=== PATIENT | female | born 1970 | race Caucasian/White ===

== ENCOUNTER 2018-04-23 07:56 | Emergency (ER) | payer SELFPAY ==
[~2018-04-23] VITALS: Ht 157.5 cm; Wt 63.6 kg
[2018-04-23 08:12] VITALS: Ht 157.5 cm; Wt 63.6 kg
[2018-04-23] MEDS ORDERED: DEXILANT60 MG PO ×2 (08:13→08:41)
[2018-04-23] MEDS ORDERED: PRISTIQ100 MG PO ×2 (08:14→08:41)
[2018-04-23 08:56] VITALS: BP 126/88
== END 2018-04-23 08:56 | disposition home or self-care (01) ==
LOC: D.ER 07:56
DX: F32.9 Major depressive disorder, single episode, unspecified (principal); K21.9 Gastro-esophageal reflux disease without esophagitis; F90.9 Attention-deficit hyperactivity disorder, unspecified type; F17.200 Nicotine dependence, unspecified, uncomplicated

== ENCOUNTER 2018-06-30 06:32 | Emergency (ER) | payer MEDICAID ==
[~2018-06-30] VITALS: Ht 157.5 cm; Wt 63.6 kg
[~2018-06-30 06:32] MED LIST: DEXILANT60 MG PO; PRISTIQ100 MG PO
[2018-06-30 06:46] VITALS: Ht 157.5 cm; Wt 63.6 kg
[2018-06-30] MEDS ORDERED: AUGMENTIN 875-11 TAB PO (08:33)
[2018-06-30] MEDS ORDERED: HYDROCODON-ACE1 EAC7 PO (08:34)
[2018-06-30] MEDS ORDERED: CLARITIN 10 MG10 MG PO (08:34)
[2018-06-30 08:53] VITALS: BP 140/93
[2018-07-24] MEDS ORDERED: BYSTOLIC5 MG PO (14:15)
[2018-07-29 06:47] VITALS: Ht 157.5 cm; Wt 63.6 kg
== END 2018-06-30 08:54 | disposition home or self-care (01) ==
LOC: D.ER 06:32
DX: J01.90 Acute sinusitis, unspecified (principal); M54.31 Sciatica, right side; K21.9 Gastro-esophageal reflux disease without esophagitis; F90.9 Attention-deficit hyperactivity disorder, unspecified type; F17.200 Nicotine dependence, unspecified, uncomplicated

== ENCOUNTER 2018-07-29 05:25 | Day surgery (SDC) | payer MEDICAID ==
[2018-07-24 14:49] LABS: HEMATOCRIT 39.9 % (36.0-48.0); HEMOGLOBIN 13.5 g/dL (12-16); MCHC 33.8 g/dL (31.0-37.0); MCV 97.6 fL (80.0-100.0); RBC 4.09 10x6/uL (4.00-5.40); WBC 9.5 10x3/uL (4.8-10.8)
[2018-07-27 07:29] LABS: BASOPHILS 0.4 % (0-2); EOSINOPHILS 1.7 % (0-7); HEMATOCRIT 42.2 % (36.0-48.0); HEMOGLOBIN 14.4 g/dL (12-16); IMMATURE GRANULOCYTES 0.2 % (0-5); LYMPHOCYTES 24.6 % (15-50); MCH 33.3 pg (26.0-34.0); MCHC 34.1 g/dL (31.0-37.0); MCV 97.7 fL (80.0-100.0); MEAN PLATELET VOLUME 9.2 fL (7.4-10.4); MONOCYTES 12.1 % (2-11); PLATELET COUNT 410 10x3/uL (130-400); RBC 4.32 10x6/uL (4.00-5.40); WBC 10.9 10x3/uL (4.8-10.8)
[2018-07-27 07:45] LABS: CALC OSMOLALITY 276 mosm/kg (275-300); CALCIUM 8.9 mg/dL (8.5-10.1); CARBON DIOXIDE 33.2 mmol/L (21.0-32.0); CHLORIDE - SERUM 101 mmol/L (98-107); CREATININE - SERUM 0.6 mg/dL (0.6-1.3); GLUCOSE 93 mg/dL (74-106); POTASSIUM - SERUM 3.9 mmol/L (3.5-5.1); SODIUM 140 mmol/L (136-145); UREA NITROGEN 7 mg/dL (7-18); eGFR NON AFRICAN AMERICAN > 90 mL/min (90-120)
[~2018-07-29] VITALS: Ht 157.5 cm; Wt 63.5 kg
[~2018-07-29 05:25] MED LIST changes: +AUGMENTIN 875-11 TAB PO; +BYSTOLIC5 MG PO; +CLARITIN 10 MG10 MG PO; +HYDROCODON-ACE1 EAC7 PO
[2018-07-29 06:47] VITALS: BP 105/68; Ht 157.5 cm; Wt 63.5 kg
== END 2018-07-29 12:55 | disposition home or self-care (01) ==
LOC: D.OPS 05:25 → D.PAN 07:30 → D.OPS 12:55
PROVIDERS: Anesthesiology; Orthopaedic Surgery
DX: G56.02 Carpal tunnel syndrome, left upper limb (principal); M65.312 Trigger thumb, left thumb; Z01.812 Encounter for preprocedural laboratory examination

== ENCOUNTER 2018-10-14 09:29 | Emergency (ER) | payer MEDICAID ==
[~2018-10-14] VITALS: Ht 157.5 cm; Wt 59.1 kg
[2018-10-14 09:45] VITALS: Ht 157.5 cm; Wt 59.1 kg
[2018-10-14] MEDS ORDERED: ADDERALL 7.5 M7.5 MG PO (09:47)
[2018-10-14] MEDS ORDERED: ADDERALL 5 MG TA5 M1 (09:47)
[2018-10-14] MEDS ORDERED: TALWIN NX1 TAB PO (11:04)
[2018-10-14] MEDS ORDERED: BACLOFEN20 M1 PO (11:04)
[2018-10-14] MEDS ORDERED: COMPAZINE5 MG PO (11:04)
[2018-10-14 11:49] VITALS: BP 123/78
[2018-10-15] MEDS ORDERED: CYCLOBENZAPRINE10 MG PO (08:30)
== END 2018-10-14 11:50 | disposition home or self-care (01) ==
LOC: D.ER 09:29
DX: M54.31 Sciatica, right side (principal); M54.5 Low back pain; F17.200 Nicotine dependence, unspecified, uncomplicated

== ENCOUNTER 2018-10-15 07:58 | Emergency (ER) | payer MEDICAID ==
[~2018-10-15] VITALS: Ht 157.5 cm; Wt 59.1 kg
[~2018-10-15 07:58] MED LIST changes: +ADDERALL 5 MG TA5 M1; +ADDERALL 7.5 M7.5 MG PO; +BACLOFEN20 M1 PO; +COMPAZINE5 MG PO; +TALWIN NX1 TAB PO
[2018-10-15 08:03] VITALS: Ht 157.5 cm; Wt 59.1 kg
[2018-10-15] MEDS ORDERED: CYCLOBENZAPRINE10 MG PO (08:30)
[2018-10-15 09:15] VITALS: BP 118/62
== END 2018-10-15 09:16 | disposition home or self-care (01) ==
LOC: D.ER 07:58
DX: M54.41 Lumbago with sciatica, right side (principal); G89.29 Other chronic pain; F17.200 Nicotine dependence, unspecified, uncomplicated

== ENCOUNTER 2019-03-13 07:28 | Emergency (ER) | payer MEDICAID ==
[~2019-03-13] VITALS: Ht 157.5 cm; Wt 59.1 kg
[~2019-03-13 07:28] MED LIST changes: +CYCLOBENZAPRINE10 MG PO
[2019-03-13 07:31] VITALS: Ht 157.5 cm; Wt 59.1 kg
[2019-03-13 08:25] LABS: BASOPHILS 0.4 % (0-2); HEMOGLOBIN 14.2 g/dL (12-16); IMMATURE GRANULOCYTES 0.3 % (0-5); LYMPHOCYTES 26.3 % (15-50); MCH 33.2 pg (26.0-34.0); MCHC 35.5 g/dL (31.0-37.0); MCV 93.5 fL (80.0-100.0); MEAN PLATELET VOLUME 9.3 fL (7.4-10.4); MONOCYTES 9.9 % (2-11); NEUTROPHILS 62.1 % (40-80); PLATELET COUNT 379 10x3/uL (130-400); RBC 4.28 10x6/uL (4.00-5.40); RDW 14.6 % (11.5-14.5); WBC 9.8 10x3/uL (4.8-10.8)
[2019-03-13 08:34] LABS: INR 0.87 (0.85-1.17); PROTIME 11.4 SECONDS (11.6-15.0)
[2019-03-13 08:35] LABS: APTT 34.2 SECONDS (22.8-39.4)
[2019-03-13 08:40] LABS: ALBUMIN 3.6 g/dL (3.4-5.0); ALKALINE PHOSPHATASE 80 U/L (46-116); ALT (SGPT) 22 U/L (10-68); BILIRUBIN - TOTAL 0.24 mg/dL (0.2-1.3); CALC OSMOLALITY 278 mosm/kg (275-300); CARBON DIOXIDE 26.7 mmol/L (21.0-32.0); CHLORIDE - SERUM 103 mmol/L (98-107); CREATININE - SERUM 0.6 mg/dL (0.6-1.3); GLUCOSE 81 mg/dL (74-106); POTASSIUM - SERUM 3.5 mmol/L (3.5-5.1); PROTEIN - SERUM 7.4 g/dL (6.4-8.2); SODIUM 141 mmol/L (136-145); UREA NITROGEN 11 mg/dL (7-18); eGFR NON AFRICAN AMERICAN > 90 mL/min (90-120)
[2019-03-13 08:54] LABS: CREATINE KINASE 95 UL (21-215); PRO BNP 37 pg/mL (0-125)
[2019-03-13 08:55] LABS: TROPONIN-I < 0.017 ng/mL (0.000-0.060)
[2019-03-13] MEDS ORDERED: LEVAQUIN750 MG PO (08:55)
[2019-03-13] MEDS ORDERED: HYDROCODON-ACE1 EAC2 PO (08:55)
[2019-03-13 11:20] VITALS: BP 115/74
== END 2019-03-13 11:22 | disposition home or self-care (01) ==
LOC: D.ER 07:28
PROVIDERS: Emergency Medicine
DX: J18.9 Pneumonia, unspecified organism (principal)

== ENCOUNTER 2019-03-23 12:06 | Inpatient (IN) | payer BC ==
[~2019-03-23] VITALS: Ht 157.5 cm; Wt 54.6 kg
--- NOTE | ~2019-03-23 | EC ---
PATIENT:JAME LUO DATE OF SERVICE: 03/23/19 SEX: F MEDICAL RECORD: [id number] DATE OF : [birth year] LOCATION:D. D.212 AGE OF PATIENT: 49 ADMISSION DATE: 03/23/19 REFERRING PHYSICIAN: INTERPRETING PHYSICIAN: CADY LOVING MD ECHOCARDIOGRAM REPORT ECHO CHARGES 4 ECHO COMPLETE Date: 03/24/19 CLINICAL DIAGNOSIS: ABNORMAL EKG, CHEST DISCOMFORT ECHOCARDIOGRAPHIC MEASUREMENTS (adult normal given) AC root (d.<3.7cm) 2.8 cm LV Septum d (<1.2 cm> 0.8 cm Valve Excursion 2.2 cm LV Septum (systole) 1.3 cm Left Atria (s.<4.0cm> 3.3 cm LVPW d(<1.2cm) 1.1 cm RV (d.<2.3cm) 3.3 cm LVPW (sytole) 1.2 cm LV diastole(<5.6CM) 5.6 cm MV E-F(>70mm/sec) cm LV systole 3.9 cm LVOT Diameter 2.0 cm MV exc.(>10mm) cm Est.ejection fraction (50-75%) % DOPPLER: LVIT cm/sec A 74 cm/sec E 91 cm/sec LA cm/sec RVSP 26.6 mmHg LVOT 89 cm/sec AOP1/2T m/s Asc. Ao 152 cm/sec RVOT 44 cm/sec RA cm/sec PA 47 cm/sec AV Gradient Peak 9.2 mmHg AV Mean 5.5 mmHg AV Area 2.0 cm MV Gradient Peak 4.7 mmHg MV Mean 2.1 mmHg MV Area cm COMMENTS: Dean Of Faculty: Emmie HAM Cleaner Wall: Asetr Hitchcock TAPE# PACS Pericardial Effusion N DATE OF SERVICE: 03/24/2019 FINDINGS: 1. Left ventricular chamber size is within normal limits. Left ventricular systolic function is normal. Overall ejection fraction is estimated at 55%. 2. Left atrium, right atrium, and right ventricular chamber sizes are within normal limit. 3. Valvular structures have normal structure and motion. 4. Doppler interrogation reveals mild tricuspid regurgitation. No other valvular insufficiency or stenosis. Pulmonary systolic pressure is estimated at ECHOCARDIOGRAM REPORT [id number] JAME LUO 26 mmHg. 5. No evidence of pericardial effusion or left ventricular thrombus. TRANSINT:[id number] Voice Confirmation ID: [id number] DOCUMENT ID: [id number] CADY LOVING MD CC: [id number] DICTATION DATE: 03/24/191746 LINING MACHINE OPERATOR: 03/24/192011 ADM IN [facility] [address] [place] [address]
[~2019-03-23 12:06] MED LIST changes: +HYDROCODON-ACE1 EAC2 PO; +LEVAQUIN750 MG PO
[2019-03-23 13:01] LABS: BASOPHILS 0.1 % (0-2); EOSINOPHILS 0.8 % (0-7); HEMATOCRIT 36.2 % (36.0-48.0); HEMOGLOBIN 12.5 g/dL (12-16); IMMATURE GRANULOCYTES 0.4 % (0-5); LYMPHOCYTES 10.9 % (15-50); MCH 32.7 pg (26.0-34.0); MCHC 34.5 g/dL (31.0-37.0); MCV 94.8 fL (80.0-100.0); MEAN PLATELET VOLUME 8.9 fL (7.4-10.4); MONOCYTES 7.1 % (2-11); NEUTROPHILS 80.7 % (40-80); PLATELET COUNT 438 10x3/uL (130-400); RBC 3.82 10x6/uL (4.00-5.40); RDW 14.3 % (11.5-14.5); WBC 19.6 10x3/uL (4.8-10.8)
[2019-03-23 13:04] LABS: ALBUMIN 3.2 g/dL (3.4-5.0); ALKALINE PHOSPHATASE 83 U/L (46-116); ALT (SGPT) 22 U/L (10-68); BILIRUBIN - TOTAL 0.36 mg/dL (0.2-1.3); CALC OSMOLALITY 272 mosm/kg (275-300); CALCIUM 8.5 mg/dL (8.5-10.1); CARBON DIOXIDE 31.8 mmol/L (21.0-32.0); CHLORIDE - SERUM 99 mmol/L (98-107); CREATININE - SERUM 0.6 mg/dL (0.6-1.3); POTASSIUM - SERUM 3.5 mmol/L (3.5-5.1); PROTEIN - SERUM 7.5 g/dL (6.4-8.2); SODIUM 137 mmol/L (136-145); UREA NITROGEN 5 mg/dL (7-18); eGFR NON AFRICAN AMERICAN > 90 mL/min (90-120)
[2019-03-23 13:05] LABS: GLUCOSE 138 mg/dL (74-106)
[2019-03-23 13:11] LABS: INR 1.02 (0.85-1.17); PROTIME 12.9 SECONDS (11.6-15.0)
[2019-03-23 13:12] LABS: APTT 40.1 SECONDS (22.8-39.4)
[2019-03-23 13:16] LABS: CKMB 0.5 U/L (0.0-3.6); CREATINE KINASE 49 UL (21-215); PRO BNP 51 pg/mL (0-125)
[2019-03-23 13:17] LABS: TROPONIN-I < 0.017 ng/mL (0.000-0.060)
--- NOTE | 2019-03-23 15:20 | MORECARE ---
CASE MANAGEMENT DISCHARGE SUMMARY PATIENT: JAME LUO UNIT: [id number] ADM DATE: 03/23/19 AGE: 49 : [birth year] SEX: F ROOM/BED: D.2127 AUTHOR: BALA CANALES PHYSICIAN: REFERRING PHYSICIAN: JAN WILSON MD DATE OF SERVICE: 03/23/19 Discharge Plan Patient Name: JAME LUO [facility] [facility] 1970 Planned Disposition: Home Anticipated Discharge Date: 03/26/19 Discharge Date: Expected LOS: 3 Initial Reviewer: [email or web address] Initial Review Date: 03/23/2019 Generated: 03/23/19 4:20 pm DCPIA - Discharge Planning Initial Assessment Updated by [email or web address]: Genie Zamudio on 03/23/19 3:17 pm * Is the patient Alert and Oriented? Yes * How many steps to enter\exit or inside your home? 10 * PCP Miya Law - [facility] * Pharmacy [facility] * Preadmission Environment Home Alone * ADLs Independent * Equipment CPAP * Other Equipment [employer] is preferred DME provider. * List name and contact numbers for known caregivers / representatives who currently or will assist patient after discharge: Adriana Mauro [facility] - [phone] * Verbal permission to speak to the caregivers and representatives has been obtained from the patient. Yes * Community resources currently utilized None * Additional services required to return to the preadmission environment? No * Can the patient safely return to the preadmission environment? Yes * Has this patient been hospitalized within the prior 30 days at any hospital? No Patient Name: JAME LUO Page [phone] at 1520 All edits/amendments must be made on the electronic document DICTATION DATE: 03/23/191518 PROFESSOR OF ANTHROPOLOGY: NAHOMY 03/23/19 151 RPT#: [id number] DC DATE: STATUS: ADM IN [facility] [address] [place] [address] END OF REPORT
--- NOTE | 2019-03-23 15:31 | MORECARE ---
CASE MANAGEMENT DISCHARGE SUMMARY PATIENT: JAME LUO UNIT: [id number] ADM DATE: 03/23/19 AGE: 49 : 68 SEX: F ROOM/BED: D.9474 AUTHOR: ALLY,DOC PHYSICIAN: REFERRING PHYSICIAN: JAN WILSON MD DATE OF SERVICE: 03/23/19 Discharge Plan Patient Name: JAME LUO Facility: [facility]:[place] : 1970 Planned Disposition: Home Anticipated Discharge Date: 03/26/19 Discharge Date: Expected LOS: 3 Initial Reviewer: [email or web address] Initial Review Date: 03/23/2019 Generated: 03/23/19 4:31 pm DCP- Discharge Planning Updated by [email or web address]: Genie Zamudio on 03/23/19 2:[address] Patient Name: JAME LUO Admission Status: ER Admission Date: 03-23-2019 : 1970 Admission Diagnosis: Failed OP Pneumonia Attending: JAN WILSON Current LOS: 1 Anticipated DC Date: 03-26-2019 Planned Disposition: Home Alone Independently Primary Insurance: [employer] Discharge Planning Comments: CM met with patient to complete initial dc planning assessment. CM educated patient on the CM role and verbal consent given by patient to complete assessment. CM verified patient's address, phone number, and emergency contact phone numbers. Patient lives at home alone and reports she is independent in her care. At discharge patient plans to return home alone and feels this is a safe discharge. CM discussed availability of home health, rehab services, and medical equipment. Patient denied known discharge needs at this time. Patient reports her mom or other family member will transport her home at time of discharge. CM will continue to follow and will assist as needed with dc plans/needs. Passenger Booking Clerk: Genie Zamudio RN, [facility] DCPIA - Discharge Planning Initial Assessment Updated by [email or web address]: Genie Zamudio on 03/23/19 3:17 pm * Is the patient Alert and Oriented? Yes * How many steps to enter\exit or inside your home? 10 * PCP Miya [facility] - [facility] * Pharmacy [facility] * Preadmission Environment Home Alone * ADLs Independent * Equipment CPAP * Other Equipment [employer] is preferred DME provider. * List name and contact numbers for known caregivers / representatives who currently or will assist patient after discharge: Adriana Mauro - - [phone] * Verbal permission to speak to the caregivers and representatives has been obtained from the patient. Yes * Community resources currently utilized None * Additional services required to return to the preadmission environment? No * Can the patient safely return to the preadmission environment? Yes * Has this patient been hospitalized within the prior 30 days at any hospital? No Last DP export: 03/23/19 2:20 pm Patient Name: JAME LUO Page [phone] at 1531 All edits/amendments must be made on the electronic document DICTATION DATE: 03/23/19 153 SIX HORSE HITCH DRIVER: NAHOMY 03/23/191529 RPT#: [id number] DC DATE: STATUS: ADM IN [facility] [address] [place] [address] END OF REPORT
[2019-03-23 15:39] LABS: CKMB 0.2 U/L (0.0-3.6); CREATINE KINASE 46 UL (21-215); TROPONIN-I 0.019 ng/mL (0.000-0.060)
--- NOTE | 2019-03-23 16:18 | NUR ---
VANCOMYCIN COMPLETE AT 1535.
[2019-03-23 17:01] VITALS: BMI 23.8
[2019-03-23 17:36] VITALS: BP 102/52
--- NOTE | 2019-03-23 17:43 | NUR ---
WITHOUT CHANGES OR DISTRESS NOTED AT THIS TIME.
[2019-03-23] MEDS ORDERED: ADDERALL 5 MG TA5 M1 PO (19:53)
[2019-03-23 20:00] VITALS: BP 104/56
[2019-03-23 21:34] LABS: CKMB 0.2 U/L (0.0-3.6); CREATINE KINASE 50 UL (21-215)
[2019-03-23 21:36] LABS: TROPONIN-I < 0.017 ng/mL (0.000-0.060)
[2019-03-24] VITALS: BP 104/58
--- NOTE | 2019-03-24 01:53 | NUR ---
I have reviewed this patient and I concur with the Shift Assessment completed by the Licensed Practical Nurse today this shift.
[2019-03-24 04:30] VITALS: BP 119/72
[2019-03-24 04:55] LABS: BASOPHILS 0.1 % (0-2); EOSINOPHILS 0 % (0-7); HEMATOCRIT 33.4 % (36.0-48.0); HEMOGLOBIN 11.5 g/dL (12-16); IMMATURE GRANULOCYTES 0.4 % (0-5); MCH 32.1 pg (26.0-34.0); MCHC 34.4 g/dL (31.0-37.0); MCV 93.3 fL (80.0-100.0); MEAN PLATELET VOLUME 8.9 fL (7.4-10.4); MONOCYTES 3.1 % (2-11); NEUTROPHILS 90.4 % (40-80); PLATELET COUNT 426 10x3/uL (130-400); RBC 3.58 10x6/uL (4.00-5.40); RDW 14.1 % (11.5-14.5); WBC 16.8 10x3/uL (4.8-10.8)
[2019-03-24 05:18] LABS: ALBUMIN 2.6 g/dL (3.4-5.0); ALKALINE PHOSPHATASE 76 U/L (46-116); ALT (SGPT) 19 U/L (10-68); BILIRUBIN - TOTAL 0.27 mg/dL (0.2-1.3); CALCIUM 8.5 mg/dL (8.5-10.1); CHLORIDE - SERUM 103 mmol/L (98-107); CKMB 0.3 U/L (0.0-3.6); CREATINE KINASE 43 UL (21-215); CREATININE - SERUM 0.6 mg/dL (0.6-1.3); MAGNESIUM - SERUM 2.1 mg/dL (1.8-2.4); PHOSPHOROUS 2.9 mg/dL (2.5-4.9); POTASSIUM - SERUM 3.6 mmol/L (3.5-5.1); PRO BNP 90 pg/mL (0-125); PROTEIN - SERUM 6.7 g/dL (6.4-8.2); SODIUM 140 mmol/L (136-145); eGFR NON AFRICAN AMERICAN > 90 mL/min (90-120)
[2019-03-24 05:33] LABS: CALC OSMOLALITY 283 mosm/kg (275-300); GLUCOSE 212 mg/dL (74-106); TROPONIN-I < 0.017 ng/mL (0.000-0.060); UREA NITROGEN 9 mg/dL (7-18)
--- NOTE | 2019-03-24 06:55 | NUR ---
BEDSIDE SHIFT REPORT, PATEINT AWAKE AND RESTING IN BED. COUGHING HEARD. ON ROOM AIR AT THIS TIME
[2019-03-24 07:33] LABS: APPEARANCE HAZY (CLEAR); COLOR DK YELLOW (YELLOW); SPECIFIC GRAVITY 1.015 (1.005-1.020)
[2019-03-24 07:34] LABS: BILIRUBIN NEGATIVE (NEGATIVE); EPITHELIAL CELLS 0-5 /hpf (0-5); GLUCOSE NEGATIVE (NEGATIVE); KETONE NEGATIVE (NEGATIVE); NITRITE NEGATIVE (NEGATIVE); PROTEIN TRACE mg/dL (NEGATIVE); RED CELLS - URINE RARE /hpf (0-5); UROBILINOGEN NORMAL (NORMAL); WHITE CELLS - URINE OCC /hpf (0-5)
[2019-03-24 07:35] LABS: BACTERIA MODERATE /hpf (NONE SEEN)
[2019-03-24 09:17] VITALS: BP 115/66
[2019-03-24 10:23] VITALS: Ht 157.5 cm; Wt 54.6 kg
[2019-03-24 13:34] VITALS: BP 114/64
--- NOTE | 2019-03-24 19:10 | NUR ---
PT IS AAO. UP AD JUDITH. LEFT AC PIV S/L PT HAS NO S/S OF DISTRESS. BED LOW AND CALL LIGHT IN REACH. NAME AND DATE PLACED ON BOARD. WILL CPOC
[2019-03-24 20:00] VITALS: BP 113/68
--- NOTE | 2019-03-24 22:37 | NUR ---
NIGHT MEDICATIONS GIVEN. PT COUGHING ASKS FOR NORCO FOR PAIN IN CHEST AND BACK FROM COUGHING AND FOR COUGH. ASKING FOR IV TO BE MOVED WILL ASSESS VEINS. PT HAS NO S/S OF DISTRESS. BED LOW AND CALL LIGHT IN REACH. WILL CPOC
--- NOTE | 2019-03-24 23:45 | NUR ---
ATTEMPT TO LEFT HAND UNSUCCESSFUL. KEEPING THE LEFT AC. PT STATED CAN TRY AGAIN LATER. IV IN LEFT AC IS INTACT. PATENT WITH CLEAN DRSG. PT JUST WANTING IT OUT OF HER LEFT AC. PT HAS NO S/S OF DISTRESS. BEDLOW AND CALL LIGHT IN REACH. WILL CPOC
--- NOTE | 2019-03-24 23:52 | NUR ---
PT COUGHING, PRODUCTIVE AT TIMES, STATES YELLOW/BROWN. LUNGS HAVE CRACKLES/RALES ON LEFT AND WHEEZES ON RIGHT. PT HAS NO S/S OF DISTRESS. BED LOW AND CALL LIGHT IN REACH. WILL CPOC
[2019-03-25] VITALS: BP 118/66
[2019-03-25 04:00] VITALS: BP 112/71
--- NOTE | 2019-03-25 04:05 | NUR ---
ZOSYN GIVEN. PT COUGHING. PRODUCTIVE AT THIS TIME. THICK YELLOW/BROWN. NORCO GIVEN FOR BREAST AND BACK PAIN FROM COUGHING. PT HAS NO S/S OF DISTRESS. WILL CPOC
--- NOTE | 2019-03-25 05:24 | NUR ---
PT UP WALKING AROUND WITH STEADY GAIT. ASKED PT TO STAY ON UNIT
--- NOTE | 2019-03-25 06:00 | NUR ---
PT BACK INTO ROOM. NO S/S OF DISTRESS. DENIES ANY NEEDS.
--- NOTE | 2019-03-25 06:13 | NUR ---
PT SITTING UP IN BED READING AND WORKING ON HOMEWORK. PT STILL HAS FREQUENT COUGHING. PRODUCTIVE AT TIMES. MORNING MEDICATION GIVEN. PT VERBALIZED UNDERSTANDING IN MEDICATIONS. PT DENIES ANY NEEDS. NO S/S OF DISTRESS. WILL CPOC
--- NOTE | 2019-03-25 07:10 | NUR ---
REPORT RECEIVED FROM OIL SPREADER OPERATOR AND PATIENT CARE ASSUMED. PATIENT SITTING UP IN BED AWAKE, ALERT AND ORIENTED X 4. PATIENT STILL WITH VERY FREQUENT , MOSTLY NON-PRODUCTIVE DRY COUGH. PATIENT DOES REPORT SOME THICK, YELLOW SPUTUM AT TIMES. PATIENT DENIES ANY NEEDS OR PAIN . PATIENT IS STABLE. VSS. WILL CONTINUE WITH PLAN OF CARE. SR UP X 2 BED IN LOW POSITION AND CALL LIGHT IN REACH.
[2019-03-25 07:23] LABS: HEMATOCRIT 30.1 % (36.0-48.0); HEMOGLOBIN 10.3 g/dL (12-16); MCH 32.1 pg (26.0-34.0); MCHC 34.2 g/dL (31.0-37.0); MCV 93.8 fL (80.0-100.0); MEAN PLATELET VOLUME 8.8 fL (7.4-10.4); PLATELET COUNT 401 10x3/uL (130-400); RBC 3.21 10x6/uL (4.00-5.40); RDW 14.4 % (11.5-14.5); WBC 32.5 10x3/uL (4.8-10.8)
[2019-03-25 07:31] LABS: CALC OSMOLALITY 278 mosm/kg (275-300); CALCIUM 8.5 mg/dL (8.5-10.1); CARBON DIOXIDE 28.2 mmol/L (21.0-32.0); CHLORIDE - SERUM 104 mmol/L (98-107); CREATININE - SERUM 0.6 mg/dL (0.6-1.3); POTASSIUM - SERUM 3.7 mmol/L (3.5-5.1); SODIUM 140 mmol/L (136-145); UREA NITROGEN 8 mg/dL (7-18); VANCOMYCIN - TROUGH 26.9 ug/mL (10.0-20.0); eGFR NON AFRICAN AMERICAN > 90 mL/min (90-120)
[2019-03-25 07:33] LABS: GLUCOSE 130 mg/dL (74-106); PHOSPHOROUS 4.2 mg/dL (2.5-4.9)
[2019-03-25 08:10] LABS: IMMUNOGLOBULIN A 249 mg/dL (87-352); IMMUNOGLOBULIN G 657 mg/dL (700-1600)
[2019-03-25 08:39] LABS: EOSINOPHILS 1 % (0-7); LYMPHOCYTES 8 % (15-50); MONOCYTES 9 % (2-11); NEUTROPHILS 74 % (40-80)
[2019-03-25 08:40] LABS: ANISOCYTOSIS OCC; PLATELET ESTIMATE INCREASED
[2019-03-25 09:20] VITALS: BP 120/69
--- NOTE | 2019-03-25 11:17 | NUR ---
PATIENT IS STABLE AND UNCHANGED. PATIENT DENIES ANY NEEDS OR PAIN. ASSESSMENT COMPLETED. WILL CONTINUE TO MONITOR. SR UP X 2 BED IN LOW POSITION AND CALL LIGHT IN REACH.
[2019-03-25 13:19] VITALS: BP 129/77
--- NOTE | 2019-03-25 13:48 | NUR ---
IV TO LT AC INFILLTRATED. IV DC/D W/O DIFFICULTY AND CATHETER REMOVED COMPLETELY INTACT. IV RESITED TO LT WRIST 20 G WITH ONE ATTEMPT. PATIENT IS STABLE. WILL CONTINUE TO MONITOR SR UP X 2 BED IN LOW POSITION AND CALL LIGHT IN REACH.
[2019-03-25 15:06] LABS: HEMATOCRIT 29.5 % (36.0-48.0); HEMOGLOBIN 10.1 g/dL (12-16); MCH 32.3 pg (26.0-34.0); MCHC 34.2 g/dL (31.0-37.0); MCV 94.2 fL (80.0-100.0); PLATELET COUNT 410 10x3/uL (130-400); RBC 3.13 10x6/uL (4.00-5.40); RDW 14.5 % (11.5-14.5); WBC 29.9 10x3/uL (4.8-10.8)
[2019-03-25 16:05] LABS: LYMPHOCYTES 6 % (15-50); NEUTROPHILS 94 % (40-80); PLATELET ESTIMATE NORMAL
[2019-03-25 17:43] VITALS: BP 138/77
--- NOTE | 2019-03-25 19:35 | NUR ---
PT RESTING IN BED. AAO, UP AD JUDITH WITH STEADY GAIT. PT HAS NO S/S OF DISTRESS. BED LOW AND CALL LIGHT IN REACH. NAME AND DATE PLACED ON BOARD. WILL CPOC
[2019-03-25 20:00] VITALS: BP 133/79
--- NOTE | 2019-03-25 22:27 | NUR ---
NIGHT MEDICATIONS GIVEN. PT VERBALIZED UNDERSTANDING OF MEDICATIONS. WAITING FOR SINGULAR AND MUCINEX WILL GIVE ONCE PULLED BY FISH FLIPPER. EDUCATION GIVEN ON NEW MEDICAITONS. PT VERBALIZED UNDERSTANDING DENIES ANY QUESTIONS OR CONCERNS. PT HAS ZOSYN INFUSING TO LEFT HAND 22G IV. PT HAS NO S/S OF DISTRESS. PT STATES COUGH IS PRODUCTIVE AT TIMES. S1S2, RUB HEARD ON EXHALE. PT STATES SOB AT TIMES WHEN COUGHING. USES 2L PRN WHEN NEEDED. NO S/S OF DISTRESS. WILL CPOC
--- NOTE | 2019-03-25 23:06 | NUR ---
VANC STARTED. NORCO GIVEN FOR COUGH AND GENERALIZED DISCOMFORT. PT DENIES ANY OTHER NEEDS. STILL WAITING ON MUCINEX AND SINGULAR. PT WILL CALL FOR ASSIST WHEN NEEDED. WILL CPOC
[2019-03-26] VITALS: BP 135/77
--- NOTE | 2019-03-26 00:30 | NUR ---
MEDICATION SINGULAR AND MUCINEX NOT GIVEN TONIGHT. WILL START NEXT DOSE. UNDERSTANDING OF MEDICATIONS VERBALIZED BY PT. WILL CPOC
[2019-03-26 04:00] VITALS: BP 143/84
--- NOTE | 2019-03-26 04:10 | NUR ---
PT AROUSES TO NURSE IN ROOM. ZOSYN STARTED ORDERED. NEW TUBING USED. PT ASKING ABOUT PAIN MEDICATION. LET PT KNOW IT IS AVALIBLE AT 0500 WILL BRING IT SOON POSSIBLE. PT DENIES ANY OTHER NEEDS. WILL CPOC
--- NOTE | 2019-03-26 05:21 | NUR ---
MORNING MEDICATIONS GIVEN. PT VERBALIZED UNDERSTANDING ON MEDICATIONS. VANC STARTED. NEW TUBING USED, LABELED AND PLACED SWAB CAPS. PT GIVEN A NORCO FOR COUGH DISCOMFORT. PT HAS NO S/S OF DISTRESS. BED LOW AND CALL LIGHT IN REACH. WILL CPOC
--- NOTE | 2019-03-26 05:39 | NUR ---
PT FEELING A BURNING SENSATION WHEN ADMINISTERING SOLU MED. WAITING TO RUN VANC. WILL CHECK FOR NEW IV ACCESS.
[2019-03-26 05:46] LABS: BASOPHILS 0 % (0-2); EOSINOPHILS 0 % (0-7); HEMATOCRIT 30.5 % (36.0-48.0); HEMOGLOBIN 10.3 g/dL (12-16); IMMATURE GRANULOCYTES 0.6 % (0-5); LYMPHOCYTES 5.7 % (15-50); MCH 31.9 pg (26.0-34.0); MCHC 33.8 g/dL (31.0-37.0); MCV 94.4 fL (80.0-100.0); MEAN PLATELET VOLUME 9.1 fL (7.4-10.4); MONOCYTES 4.6 % (2-11); NEUTROPHILS 89.1 % (40-80); PLATELET COUNT 441 10x3/uL (130-400); RBC 3.23 10x6/uL (4.00-5.40); RDW 14.5 % (11.5-14.5)
[2019-03-26 06:22] LABS: CALC OSMOLALITY 282 mosm/kg (275-300); CALCIUM 8.6 mg/dL (8.5-10.1); CARBON DIOXIDE 29.7 mmol/L (21.0-32.0); CHLORIDE - SERUM 103 mmol/L (98-107); CREATININE - SERUM 0.5 mg/dL (0.6-1.3); GLUCOSE 139 mg/dL (74-106); POTASSIUM - SERUM 3.8 mmol/L (3.5-5.1); SODIUM 142 mmol/L (136-145); UREA NITROGEN 7 mg/dL (7-18); eGFR NON AFRICAN AMERICAN > 90 mL/min (90-120)
--- NOTE | 2019-03-26 07:02 | NUR ---
LEFT WRIST/ HAND IV REMOVED WITH CATH INTACT. NEW IV PLACED IN RIGHT FOREARM 20G ONE ATTEMPT. VANC STARTED ORDERED. WILL CPOC
--- NOTE | 2019-03-26 07:10 | NUR ---
REPORT RECEIVED FORM REGIONAL CLINICAL RESEARCH ASSOCIATE AND PATIENT CARE ASSUMED. WARM PACK TO RT FOREARM TO FORMER IV INFILLTRATION SITE. IV RE-SITED TO RINA 22 GA. PATIENT DENIES ANY NEEDS OR PAIN. PATIENT IS STABLE AND VSS. WILL CONTINUE WITH PLAN OF CARE. SR UP X 2 BED IN LOW POSITION AND CALL LIGHT IN REACH.
--- NOTE | 2019-03-26 07:11 | NUR ---
RIGHT FOREARM IV HAS SWELLING AND INDURATION. REMOVED WITH CATH INTACT AND CHANGED TO NOT GIVEN ON VANC IN EMAR. WILL PASS TO COURTNEY. NEXT NURSE TO CARE FOR PATIENT. PT HAS A WARM PACK ON RIGHT FOREARM. DENIES ANY OTHER NEEDS. WILL CPOC
[2019-03-26 07:52] VITALS: BP 138/94
[2019-03-26 12:01] VITALS: BP 126/67
[2019-03-26 15:38] VITALS: BP 116/72
--- NOTE | 2019-03-26 16:31 | NUR ---
PATIENT LAYING IN BED ON RT SIDE WITH EYS CLOSED AND BREATHING EVENLY. PATIENT IS STABLE AND UNCHANGED. WILL CONTINUE WITH PLAN OF CARE. SR UP X 2 BED IN LOW POSITION AND CALL LIGHT IN REACH.
--- NOTE | 2019-03-26 19:15 | NUR ---
AWAKE AND ALERT BED IS LOW AND LOCKED AND CALL LIGHT IA WITH PT FLUIDS STOPPED AND IV FLUSHED LCTA SKIN WARM AND DRY PT DENIES NEEDS AT THIS TIME
[2019-03-26 20:00] VITALS: BP 110/62
[2019-03-27] VITALS: BP 114/69
--- NOTE | 2019-03-27 02:13 | NUR ---
I have reviewed this patient and I concur with the Shift Assessment completed by the Licensed Practical Nurse today this shift.
[2019-03-27 04:00] VITALS: BP 134/73
[2019-03-27 05:45] LABS: BASOPHILS 0.1 % (0-2); EOSINOPHILS 0 % (0-7); HEMATOCRIT 31.4 % (36.0-48.0); HEMOGLOBIN 10.7 g/dL (12-16); IMMATURE GRANULOCYTES 0.4 % (0-5); LYMPHOCYTES 10.9 % (15-50); MCH 32.2 pg (26.0-34.0); MCHC 34.1 g/dL (31.0-37.0); MCV 94.6 fL (80.0-100.0); MEAN PLATELET VOLUME 9.1 fL (7.4-10.4); NEUTROPHILS 82.6 % (40-80); PLATELET COUNT 458 10x3/uL (130-400); RBC 3.32 10x6/uL (4.00-5.40); RDW 14.1 % (11.5-14.5)
[2019-03-27 05:47] LABS: WBC 17.8 10x3/uL (4.8-10.8)
[2019-03-27 06:14] LABS: CALC OSMOLALITY 281 mosm/kg (275-300); CALCIUM 8.6 mg/dL (8.5-10.1); CARBON DIOXIDE 31.6 mmol/L (21.0-32.0); CHLORIDE - SERUM 103 mmol/L (98-107); CREATININE - SERUM 0.5 mg/dL (0.6-1.3); GLUCOSE 116 mg/dL (74-106); MAGNESIUM - SERUM 1.9 mg/dL (1.8-2.4); SODIUM 142 mmol/L (136-145); UREA NITROGEN 7 mg/dL (7-18); VANCOMYCIN - TROUGH 22.3 ug/mL (10.0-20.0); eGFR NON AFRICAN AMERICAN > 90 mL/min (90-120)
--- NOTE | 2019-03-27 07:10 | NUR ---
REPORT RECEIVED FROM SOCIAL SERVICE COORDINATOR AND PATIENT CARE ASSUMED. PATIENT SITTING UP IN BED AWAKE, ALERT AND ORIENTED X 4. PATIENT IS STABLE AND VSS. WILL CONTINUE WITH PLAN OF CARE. SR UP X 2 BED IN LOW POSTION AND CALL LIGHT IN REACH.
[2019-03-27 09:33] VITALS: BP 142/69
--- NOTE | 2019-03-27 12:43 | NUR ---
PATIENT UP TO SHOWER. COMPLETE LINEN CHANGE. PATIENT IS STABLE AND VSS. PATIENT DENIES ANY NEEDS OR PAIN WILL CONTINUE TO MONITOR. SR UP X 2 BED IN LOW POSITION AND CALL LIGHT IN REACH.
[2019-03-27 14:23] VITALS: BP 137/80
[2019-03-27 16:10] VITALS: BP 136/79
[2019-03-27 19:10] VITALS: BP 121/62
--- NOTE | 2019-03-27 19:48 | NUR ---
EVENING ROUNDS COMPLETED. REPORT RECEIVED. PT SITTING UP IN BED WITH EYES OPEN, RR EVEN AND UNLABORED. BED IN LOW POSITION. NO S/S OF DISTRESS NOTED. RECEIVING BREATHING TREATMENT. INTRODUCED SELF TO PT. ADMINISTERED ORDERED ANALGESIC FOR PT COMPLAINTS OF PAIN IN RIBS. DENIES FURTHER NEEDS AT THIS TIME. CALL LIGHT IN REACH. WILL CTM.
[2019-03-28] VITALS: BP 119/67
--- NOTE | 2019-03-28 03:15 | NUR ---
ADMINISTERED ORDERED ANALGESIC FOR COMPLAINTS OF PAIN IN RIBS. ORDERED ABX INFUSING ORDERED. DENIES FURTHER NEEDS AT THIS TIME. CALL LIGHT IN REACH. WILL CTM.
[2019-03-28 04:00] VITALS: BP 140/77
[2019-03-28 05:09] LABS: BASOPHILS 0.1 % (0-2); EOSINOPHILS 0 % (0-7); HEMATOCRIT 31.9 % (36.0-48.0); HEMOGLOBIN 10.9 g/dL (12-16); IMMATURE GRANULOCYTES 0.3 % (0-5); LYMPHOCYTES 9.8 % (15-50); MCH 32.1 pg (26.0-34.0); MCHC 34.2 g/dL (31.0-37.0); MCV 93.8 fL (80.0-100.0); MEAN PLATELET VOLUME 8.9 fL (7.4-10.4); MONOCYTES 5.1 % (2-11); NEUTROPHILS 84.7 % (40-80); PLATELET COUNT 514 10x3/uL (130-400)
[2019-03-28 05:21] LABS: CALC OSMOLALITY 279 mosm/kg (275-300); CALCIUM 8.6 mg/dL (8.5-10.1); CARBON DIOXIDE 30.5 mmol/L (21.0-32.0); CHLORIDE - SERUM 101 mmol/L (98-107); CREATININE - SERUM 0.6 mg/dL (0.6-1.3); GLUCOSE 145 mg/dL (74-106); MAGNESIUM - SERUM 2.1 mg/dL (1.8-2.4); PHOSPHOROUS 4.1 mg/dL (2.5-4.9); POTASSIUM - SERUM 4.2 mmol/L (3.5-5.1); SODIUM 139 mmol/L (136-145); eGFR NON AFRICAN AMERICAN > 90 mL/min (90-120)
[2019-03-28 05:22] LABS: UREA NITROGEN 9 mg/dL (7-18)
--- NOTE | 2019-03-28 05:26 | NUR ---
I have reviewed this patient and I concur with the Shift Assessment completed by the Licensed Practical Nurse today this shift.
--- NOTE | 2019-03-28 07:10 | NUR ---
PATIENT ASKED FOR A NEW IS BECAUSE HERS WAS BROKEN. I ASKED HER TO TRY IT AND SHE BLEW OUT INSTEAD OF SUCKING IN. I INSTRUCTED HER THE PROPER WAY TO USE THE IS AND IT WORKED CORRECTLY. I ASKED HER TO DO 10 TIMES AND SHE SHE ONLY DOES IT ONCE 5 TIMES A DAY. I EXPLAINED THAT THE DOCTORS ORDERS ARE TEN REPS 5 TIMES A DAY FOR THE FLUTTER AND TEN REPS EVERY TWO HOURS FOR THE IS. SHE BECAME ANGRY AND SAID "WE CAN'T BECOMING IN THERE LIKE A BULL IN A [employer] SHOP TELLING HER HOW TO DO THINGS". I EXPLAINED TO HER THAT I WAS NOT DOING THAT AND WAS JUST PROPERLY EXPLAINING THE PROCEDURE AND DOCTORS ORDERS. SHE SAID SHE CAN'T DO IT WHILE I'M IN THE ROOM. I TOLD HER THAT I NEED TO WITNESS HER EFFORT SO THAT I COULD DOCUMENT IT AND SHE SAID THAT I COULD JUST PUT THAT SHE REFUSES. i SAID YES MA'AM AND LEFT THE ROOM.
[2019-03-28 07:41] VITALS: BP 160/91
[2019-03-28] MEDS ORDERED: TESSALON PERLE100 MG PO (12:44)
[2019-03-28] MEDS ORDERED: AUGMENTIN 875-11 TAB PO (12:44)
[2019-03-28] MEDS ORDERED: PREDNISONE20 MG PO (12:45)
[2019-03-28] MEDS ORDERED: IPRAT-ALBUT 0.5-3 ML UPD (12:46)
--- NOTE | 2019-03-28 13:02 | NUR ---
DR YANES'S RECOMMENDATIONS NOTED. SPOKE WITH CELINA SPIVEY APN, RE DOSAGES. SEE DISCHARGE MEDICATION LIST. RX'S CALLED TO [facility] N, SPOKE WITH AMY PLASCENCIA.
[2019-03-28 13:06] LABS: IMMUNOGLOBULIN E 30 IU/mL (6-495)
--- NOTE | 2019-03-29 08:50 | MORECARE ---
CASE MANAGEMENT DISCHARGE SUMMARY PATIENT: JAME LUO UNIT: [id number] ADM DATE: 03/23/19 AGE: 49 : 68 SEX: F ROOM/BED: D.5724 AUTHOR: ALLY,DOC PHYSICIAN: REFERRING PHYSICIAN: JAN WILSON MD DATE OF SERVICE: 03/29/19 Discharge Plan Patient Name: JAME LUO Facility: [facility]:[place] : 1970 Planned Disposition: Home Anticipated Discharge Date: 03/28/19 Discharge Date: 03/28/2019 Expected LOS: 5 Initial Reviewer: [email or web address] Initial Review Date: 03/23/2019 Generated: 03/29/19 9:50 am DCP- Discharge Planning Updated by [email or web address]: Genie Zamudio on 03/23/19 2:[address] Patient Name: JAME LUO Admission Status: ER Admission Date: 03-23-2019 : 1970 Admission Diagnosis: Failed OP Pneumonia Attending: JAN WILSON Current LOS: 1 Anticipated DC Date: 03-26-2019 Planned Disposition: Home Alone Independently Primary Insurance: [employer] Discharge Planning Comments: CM met with patient to complete initial dc planning assessment. CM educated patient on the CM role and verbal consent given by patient to complete assessment. CM verified patient's address, phone number, and emergency contact phone numbers. Patient lives at home alone and reports she is independent in her care. At discharge patient plans to return home alone and feels this is a safe discharge. CM discussed availability of home health, rehab services, and medical equipment. Patient denied known discharge needs at this time. Patient reports her mom or other family member will transport her home at time of discharge. CM will continue to follow and will assist as needed with dc plans/needs. Explosives Operator: Genie Zamudio RN, [facility] DCPIA - Discharge Planning Initial Assessment Updated by [email or web address]: Genie Zamudio on 03/23/19 3:17 pm * Is the patient Alert and Oriented? Yes * How many steps to enter\exit or inside your home? 10 * PCP Miya Law - [facility] * Pharmacy [facility] * Preadmission Environment Home Alone * ADLs Independent * Equipment CPAP * Other Equipment [employer] is preferred DME provider. * List name and contact numbers for known caregivers / representatives who currently or will assist patient after discharge: Adriana Mauro - [facility] - [phone] * Verbal permission to speak to the caregivers and representatives has been obtained from the patient. Yes * Community resources currently utilized None * Additional services required to return to the preadmission environment? No * Can the patient safely return to the preadmission environment? Yes * Has this patient been hospitalized within the prior 30 days at any hospital? No Last DP export: 03/23/19 2:31 pm Patient Name: JAME LUO Page [id number] at 0850 All edits/amendments must be made on the electronic document DICTATION DATE: 03/29/19848 FINGERNAIL SCULPTOR: NAHOMY 03/29/1950 RPT#: [id number] DC DATE:03/28/19 STATUS: DIS IN [facility] [address] [place] [address] END OF REPORT
== END 2019-03-28 13:17 | disposition home or self-care (01) | DRG 193 ==
LOC: D.ER 12:06 → D.M2 14:58 → D.EDHOLD 14:58 → D.M2 15:09
PROVIDERS: Family Medicine; Internal Medicine Pulmonary Disease; ADMIT Internal Medicine Nephrology; ATTEND Internal Medicine Nephrology
DX: J18.9 Pneumonia, unspecified organism (principal); J96.01 Acute respiratory failure with hypoxia; N39.0 Urinary tract infection, site not specified; J44.0 Chronic obstructive pulmonary disease with (acute) lower respiratory infection; N17.9 Acute kidney failure, unspecified; J21.9 Acute bronchiolitis, unspecified; M54.30 Sciatica, unspecified side; G47.33 Obstructive sleep apnea (adult) (pediatric); D64.9 Anemia, unspecified; K21.9 Gastro-esophageal reflux disease without esophagitis

== ENCOUNTER → 2019-05-21 08:03 | Outpatient (CLI) | payer BC ==
[2019-03-24 10:23] VITALS: BMI 23.8
[~2019-05-21 08:03] MED LIST changes: +ADDERALL 5 MG TA5 M1 PO; +IPRAT-ALBUT 0.5-3 ML UPD; +PREDNISONE20 MG PO; +TESSALON PERLE100 MG PO
== END | disposition home or self-care (01) ==
LOC: D.MRI 08:03
PROVIDERS: ATTEND Pain Medicine Interventional Pain Medicine
DX: M54.41 Lumbago with sciatica, right side (principal); M54.31 Sciatica, right side; M54.32 Sciatica, left side; M54.17 Radiculopathy, lumbosacral region; G89.4 Chronic pain syndrome; Z79.899 Other long term (current) drug therapy; Z79.891 Long term (current) use of opiate analgesic

== ENCOUNTER → 2019-06-18 08:37 | Outpatient (CLI) | payer BC, OTHER ==
[2019-03-24 10:23] VITALS: BMI 23.8
== END | disposition home or self-care (01) ==
LOC: D.RT 08:37
PROVIDERS: ATTEND Internal Medicine Pulmonary Disease
DX: J84.9 Interstitial pulmonary disease, unspecified (principal)